=== PATIENT | female | born 1990 | race Caucasian/White ===

== ENCOUNTER 2018-06-06 05:47 | Day surgery (SDC) | payer BC ==
[2018-06-06] MEDS ORDERED: MIDAZOLAM 1 MG/ML 2 ML INJ ×2 (08:17)
[2018-06-06] MEDS ORDERED: FENTAnyl 50 MCG/ML VIAL (08:17)
[2018-06-06] MEDS: ONDANSETRON 4 MG TAB PO (09:39)
== END 2018-06-06 11:07 | disposition home or self-care (01) ==
LOC: GIL 05:47
DX: K44.9 Diaphragmatic hernia without obstruction or gangrene (principal); K21.9 Gastro-esophageal reflux disease without esophagitis
CPT/HCPCS: 43239; 84703; 88305